=== PATIENT | female | born 1985 | race Caucasian/White ===

== ENCOUNTER 2018-04-04 13:03 | Outpatient (CLI) | END 2018-04-04 13:15 | disposition home or self-care (01) ==

== ENCOUNTER 2018-04-09 16:58 | Outpatient (CLI) | END 2018-04-09 22:02 | disposition home or self-care (01) ==

== ENCOUNTER 2018-04-11 08:56 | Outpatient (CLI) | END 2018-04-11 10:28 | disposition home or self-care (01) ==

== ENCOUNTER 2018-04-14 10:43 | Outpatient (CLI) | END 2018-04-14 14:52 | disposition home or self-care (01) ==